=== PATIENT | female | born 1990 | race Caucasian/White ===

== ENCOUNTER 2016-09-07 00:34 | Emergency (ER) | payer SELFPAY ==
[~2016-09-07] VITALS: Ht 162.5 cm; Wt 63.5 kg
[~2016-09-07 00:34] MED LIST: AMOXICILLIN500 MG PO; ANAPROX DS550 MG PO; AUGMENTIN 875 M1 TAB PO; BACTRIM DS 8001 TA1 PO; BACTROBAN OINT22 GM PO; CLINDAMYCIN150 MG PO; FLEXERIL10 MG PO; IBU800 M1 PO; KEFLEX500 M1 PO; KEFLEX500 MG PO; MACROBID100 M1 PO; MOTRIN 800 MG E4 TAB PO; MOTRIN600 MG PO; NKHM; NKHM PO; NORCO 10-325 T1 EACH PO; PERCOCET 325 MG1 TA2; PERCOCET 325 MG1 TA2 PO; PREDNICOT20 MG PO; PRENATAL1 TA1; PRENATAL1 TA1 PO; PYRIDIUM200 MG PO; SEPTRA DS 800 M1 TAB PO; TYLENOL325 M1 PO; ULTRAM50 MG PO; ZOFRAN ODT4 MG PO; ZOFRAN ODT4 MG SL; ZYRTEC10 MG PO
[2016-09-07 00:54] LABS: BASO % 0.3 % (0.0-1.0); EOS % 0.3 % (1.0-4.0); HEMATOCRIT 40.5 % (37.0-47.0); HEMOGLOBIN 13.7 g/dl (12.0-16.0); IG # 0.1 10*3/uL (0.0-0.1); LYMPH # 1.2 10*3/uL (1.3-4.4); LYMPH % 10.1 % (27.0-41.0); MEAN CELL VOLUME 96.9 fl (81.0-99.0); MEAN CORPUSCULAR HGB 32.8 pg (27.0-31.0); MEAN CORPUSCULAR HGB CONC 33.8 g/dl (33.0-37.0); MEAN PLATELET VOLUME 9.1 fl (9.6-12.3); MONO # 0.6 10*3/uL (0.1-1.0); MONO % 4.8 % (3.0-9.0); NEUT % 84.1 % (47.0-73.0); PLATELET COUNT AUTOMATED 384 10*3/uL (130-400); RED BLOOD COUNT 4.18 10*6/uL (4.10-5.10); RED CELL DISTRI WIDTH 13.2 % (0-14.5); WHITE BLOOD COUNT 11.9 10*3/uL (4.8-10.8)
[2016-09-07 01:09] LABS: ALBUMIN 3.9 gm/dl (3.1-4.5); ALKALINE PHOSPHATASE 64 U/L (45-117); BILIRUBIN, TOTAL 0.2 mg/dl (0.2-1.0); BUN 9 mg/dl (7-24); CARBON DIOXIDE 24 mmol/L (21-32); CHLORIDE 106 mmol/L (98-107); EST GLOM FILT AFRICAN AMERICAN > 60 ml/min; GLUCOSE 102 mg/dL (65-99); POTASSIUM 3.7 mmol/L (3.5-5.1); SGOT/AST 18 IU/L (3-35); SGPT/ALT 29 U/L (12-78); SODIUM 139 mmol/L (136-145); TOTAL PROTEIN 7.5 gm/dL (6.4-8.2)
[2016-09-07 01:12] LABS: B-hCG (QUALITATIVE) NEGATIVE (NEGATIVE)
[2016-09-07 01:18] LABS: BILIRUBIN NEGATIVE (NEGATIVE); BLOOD 1+ (NEGATIVE); COLOR YELLOW (YELLOW); GLUCOSE NEGATIVE (NEGATIVE); KETONE NEGATIVE (NEGATIVE); LEUKO ESTERASE 2+ (NEGATIVE); NITRITE NEGATIVE (NEGATIVE); PROTEIN NEGATIVE (NEGATIVE); SPECIFIC GRAVITY 1.015 (1.005-1.030); UROBILINOGEN 0.2 E.U./dl (0.2-1.0)
[2016-09-07 01:23] LABS: CLARITY SL CLOUDY (CLEAR)
[2016-09-07 01:25] LABS: URINE REFLEX COMMENT YES (NO); WBC 21-30 wbc/hpf (0-5)
[2016-09-07 01:28] LABS: URINE AMPHETAMINES < 1000 (1000ng/ml); URINE BARBITURATES < 200 (200ng/ml); URINE COCAINE > 300 (300ng/ml)
[2016-09-07] MEDS ORDERED: BACTRIM DS 8001 TA1 PO (12:27)
== END 2016-09-07 11:47 | disposition home or self-care (01) ==
LOC: ED 00:34
PROVIDERS: Physician Assistant
DX: F19.929 Other psychoactive substance use, unspecified with intoxication, unspecified (principal); R45.851 Suicidal ideations

== ENCOUNTER 2017-04-29 18:01 | Emergency (ER) | payer SELFPAY ==
[~2017-04-29] VITALS: Wt 59.0 kg
[2017-04-29] MEDS ORDERED: SEPTDS PO (19:20)
[2017-04-29] MEDS ORDERED: CEPHALEXIN500 M1 PO (19:20)
== END 2017-04-29 19:47 | disposition home or self-care (01) ==
LOC: ED 18:01
DX: L02.412 Cutaneous abscess of left axilla (principal); F17.200 Nicotine dependence, unspecified, uncomplicated; F10.10 Alcohol abuse, uncomplicated

== ENCOUNTER 2017-12-19 14:56 | Inpatient (IN) | payer SELFPAY ==
[~2017-12-19] VITALS: Ht 160 cm; Wt 67.8 kg
--- NOTE | ~2017-12-19 | EKG ---
[place], [place] ELECTROCARDIOGRAM REPORT NAME: MOHINDER SIMENTAL UNIT #: [id number] ROOM: [facility] DOCTOR: AMI DRAFT REPORT BIRTHDATE: [birth year] [facility] Test Date: 2017-12-19 Test Time: 17:51:16 Pat Name: MOHINDER SIMENTAL Department: 5 Room: [facility] 1 Gender: F [employer]: : 1990 Requested By: DIGNA PEACOCK Order Number: [id number] Reading MD: Altaf Sheldon MD Measurements Intervals [place] Rate: 101 P: 24 [place]: 116 QRS: 33 QRSD: 90 T: 32 QT: 343 QTc: 445 Interpretive Statements Sinus tachycardia Electronically Signed On 12-19-2017 19:11:11 PDT by Altaf Sheldon MD CM:EKGRPT:ELECTROCARDIOGRAM REPORT [id number] 10 DIGNA PEACOCK EPIPHANY DRAFT REPORT DIGNA PEACOCK
[~2017-12-19 14:56] MED LIST changes: +CEPHALEXIN500 M1 PO; +SEPTDS PO
[2017-12-19 14:57] VITALS: BP 121/85
[2017-12-19 16:00] LABS: BASO # 0.1 10*3/uL (0.0-0.1); BASO % 0.4 % (0.0-1.0); EOS # 0.1 10*3/uL (0.0-0.4); EOS % 0.4 % (1.0-4.0); HEMATOCRIT 41.6 % (37.0-47.0); HEMOGLOBIN 13.7 g/dl (12.0-16.0); LYMPH # 2.5 10*3/uL (1.3-4.4); LYMPH % 18.3 % (27.0-41.0); MEAN CELL VOLUME 97.2 fl (81.0-99.0); MEAN CORPUSCULAR HGB CONC 32.9 g/dl (33.0-37.0); MEAN PLATELET VOLUME 9.3 fl (9.6-12.3); MONO # 1.1 10*3/uL (0.1-1.0); MONO % 8.1 % (3.0-9.0); NEUT # 10.1 10*3/uL (2.3-7.9); NEUT % 72.4 % (47.0-73.0); PLATELET COUNT AUTOMATED 509 10*3/uL (130-400); RED BLOOD COUNT 4.28 10*6/uL (4.10-5.10); RED CELL DISTRI WIDTH 13.4 % (0-14.5); WHITE BLOOD COUNT 13.9 10*3/uL (4.8-10.8)
[2017-12-19 16:10] LABS: ACT PARTIAL THROMBO TIME 23.5 SECONDS (20.8-31.5); INTERNATIONAL NORM RATIO 0.9 (2.0-3.5)
[2017-12-19 16:16] LABS: ALBUMIN 3.5 gm/dl (3.1-4.5); ALKALINE PHOSPHATASE 100 U/L (45-117); BUN 10 mg/dl (7-24); CHLORIDE 105 mmol/L (98-107); CREATININE 0.84 mg/dL (0.55-1.02); ETHYL ALCOHOL < 3.0 mg/dl (<3); POTASSIUM 3.6 mmol/L (3.5-5.1); SGOT/AST 82 IU/L (3-35); SGPT/ALT 260 U/L (12-78); SODIUM 139 mmol/L (136-145); TOTAL PROTEIN 8.3 gm/dL (6.4-8.2)
[2017-12-19 16:21] VITALS: BP 123/73
[2017-12-19 16:54] LABS: BILIRUBIN NEGATIVE (NEGATIVE); BLOOD NEGATIVE (NEGATIVE); CLARITY CLOUDY (CLEAR); COLOR YELLOW (YELLOW); GLUCOSE NEGATIVE (NEGATIVE); KETONE TRACE (NEGATIVE); LEUKO ESTERASE NEGATIVE (NEGATIVE); NITRITE NEGATIVE (NEGATIVE); PH 5.5 (5.0-9.0); SPECIFIC GRAVITY 1.015 (1.005-1.030)
[2017-12-19 17:00] LABS: BACTERIA 2+; MUCOUS 1+; RBC 0-2 rbc/hpf (0-2)
[2017-12-19 17:02] LABS: URINE AMPHETAMINES < 1000 (1000ng/ml); URINE BARBITURATES < 200 (200ng/ml); URINE BENZODIAZEPINES < 200 (200ng/ml); URINE CANNABINOIDS (THC) > 50 (50ng/ml); URINE COCAINE > 300 (300ng/ml); URINE METHADONE < 300 (300ng/ml); URINE OPIATES < 300 (300ng/ml)
[2017-12-19 17:05] LABS: URINE PHENCYCLIDINE < 25 (25ng/ml)
[2017-12-19 17:15] VITALS: BP 94/68
[2017-12-19 17:45] VITALS: BP 113/64
[2017-12-19 20:00] VITALS: BP 125/60
[2017-12-20] VITALS: BP 110/53
[2017-12-20 06:47] LABS: BASO % 0.3 % (0.0-1.0); EOS # 0.1 10*3/uL (0.0-0.4); EOS % 0.5 % (1.0-4.0); LYMPH # 2.6 10*3/uL (1.3-4.4); LYMPH % 19.9 % (27.0-41.0); MEAN CELL VOLUME 96.4 fl (81.0-99.0); MEAN CORPUSCULAR HGB 31.4 pg (27.0-31.0); MEAN CORPUSCULAR HGB CONC 32.6 g/dl (33.0-37.0); MEAN PLATELET VOLUME 9.4 fl (9.6-12.3); MONO # 1.1 10*3/uL (0.1-1.0); MONO % 8.3 % (3.0-9.0); NEUT # 9.3 10*3/uL (2.3-7.9); NEUT % 70.5 % (47.0-73.0); PLATELET COUNT AUTOMATED 389 10*3/uL (130-400); RED BLOOD COUNT 3.63 10*6/uL (4.10-5.10); RED CELL DISTRI WIDTH 13.4 % (0-14.5); WHITE BLOOD COUNT 13.2 10*3/uL (4.8-10.8)
[2017-12-20 06:51] LABS: HEMOGLOBIN 11.4 g/dl (12.0-16.0)
[2017-12-20 07:12] LABS: ALBUMIN 2.6 gm/dl (3.1-4.5); ALKALINE PHOSPHATASE 74 U/L (45-117); BUN 10 mg/dl (7-24); CHLORIDE 110 mmol/L (98-107); CHOLESTEROL 93 mg/dL (<200); CREATININE 0.63 mg/dL (0.55-1.02); FREE T4 1.15 ng/dl (0.76-1.46); HDL CHOLESTEROL 26 mg/dl (40-60); LDL CHOLESTEROL 54 mg/dL (9-159); PHOSPHOROUS 2.9 mg/dL (2.5-4.9); POTASSIUM 3.7 mmol/L (3.5-5.1); SGOT/AST 61 IU/L (3-35); SGPT/ALT 186 U/L (12-78); SODIUM 142 mmol/L (136-145); TOTAL PROTEIN 6.4 gm/dL (6.4-8.2); TRIGLYCERIDES 66 mg/dl (<150); VLDL CHOLESTEROL 13 mg/dL (6-40)
[2017-12-20 07:17] LABS: THYROID STIM HORMONE (HS) 0.235 uIU/ml (0.358-4.75)
[2017-12-20 08:00] VITALS: BP 98/60
[2017-12-20 08:10] LABS: VITAMIN D, 25-HYDROXY 33.4 ng/mL (30-100)
[2017-12-20 12:00] VITALS: BP 119/59
[2017-12-20 16:00] VITALS: BP 112/63
[2017-12-20 20:00] VITALS: BP 124/69
[2017-12-21] VITALS: BP 124/69
[2017-12-21 06:20] LABS: BASO # 0.1 10*3/uL (0.0-0.1); BASO % 0.3 % (0.0-1.0); EOS # 0.1 10*3/uL (0.0-0.4); EOS % 0.3 % (1.0-4.0); HEMATOCRIT 36.6 % (37.0-47.0); HEMOGLOBIN 12.1 g/dl (12.0-16.0); LYMPH # 2.9 10*3/uL (1.3-4.4); LYMPH % 19.1 % (27.0-41.0); MEAN CELL VOLUME 95.6 fl (81.0-99.0); MEAN CORPUSCULAR HGB 31.6 pg (27.0-31.0); MEAN CORPUSCULAR HGB CONC 33.1 g/dl (33.0-37.0); MONO # 1.2 10*3/uL (0.1-1.0); MONO % 7.6 % (3.0-9.0); NEUT # 10.9 10*3/uL (2.3-7.9); NEUT % 72.2 % (47.0-73.0); PLATELET COUNT AUTOMATED 375 10*3/uL (130-400); RED BLOOD COUNT 3.83 10*6/uL (4.10-5.10); RED CELL DISTRI WIDTH 13.2 % (0-14.5); WHITE BLOOD COUNT 15.2 10*3/uL (4.8-10.8)
[2017-12-21 06:47] LABS: BUN 7 mg/dl (7-24); CHLORIDE 106 mmol/L (98-107); CREATININE 0.62 mg/dL (0.55-1.02); POTASSIUM 3.6 mmol/L (3.5-5.1); SODIUM 139 mmol/L (136-145)
[2017-12-21 08:00] VITALS: BP 108/66
[2017-12-21 12:00] VITALS: BP 118/72
[2017-12-21 16:00] VITALS: BP 104/70
[2017-12-21 20:00] VITALS: BP 119/63
[2017-12-22] VITALS: BP 119/70
[2017-12-22 08:00] VITALS: BP 119/68
[2017-12-22 12:00] VITALS: BP 109/66
[2017-12-22 16:00] VITALS: BP 114/63
[2017-12-22 20:00] VITALS: BP 128/73
[2017-12-23] VITALS: BP 84/47
[2017-12-23 01:30] VITALS: BP 104/68
[2017-12-23 06:27] LABS: BUN 12 mg/dl (7-24); CREATININE 0.58 mg/dL (0.55-1.02)
[2017-12-23 06:41] LABS: BASO # 0.1 10*3/uL (0.0-0.1); BASO % 0.8 % (0.0-1.0); EOS # 0.2 10*3/uL (0.0-0.4); EOS % 1.8 % (1.0-4.0); HEMATOCRIT 37.7 % (37.0-47.0); HEMOGLOBIN 12.8 g/dl (12.0-16.0); LYMPH # 2.8 10*3/uL (1.3-4.4); MEAN CELL VOLUME 94.3 fl (81.0-99.0); MEAN PLATELET VOLUME 10.1 fl (9.6-12.3); MONO # 0.7 10*3/uL (0.1-1.0); NEUT # 6.1 10*3/uL (2.3-7.9); NEUT % 60.9 % (47.0-73.0); NUCLEATED RED BLOOD CELL 0.1 10*3/uL (0.0-0.0); NUCLEATED RED BLOOD CELL 0.7 % (0.0-0.0); PLATELET COUNT AUTOMATED 395 10*3/uL (130-400); RED CELL DISTRI WIDTH 13.2 % (0-14.5)
[2017-12-23 08:00] VITALS: BP 119/75
[2017-12-23 08:10] LABS: HEPATITIS B SURFACE AG Negative (Negative)
[2017-12-23 08:27] LABS: HEPATITIS C VIRUS ANTIBODY >11.0 s/co (0.0-0.9)
[2017-12-23 12:00] VITALS: BP 101/61
[2017-12-23 16:00] VITALS: BP 102/55
[2017-12-23] MEDS ORDERED: SEPTDS PO (16:55)
[2017-12-24 08:08] LABS: HIV 1+2 AB + HIV1 P24 AG Non Reactive (Non Reactive)
== END 2017-12-23 18:32 | disposition home or self-care (01) | DRG 872 ==
LOC: ED 14:56 → EDHOLD 16:45 → 5E 16:45
PROVIDERS: Internal Medicine; Internal Medicine Infectious Disease; Physician Assistant
PROC: 0H9EXZZ Drainage of Left Lower Arm Skin, External Approach (ICD-10-PCS; principal; 2017-12-21)
DX: A41.9 Sepsis, unspecified organism (principal); E83.41 Hypermagnesemia; L03.114 Cellulitis of left upper limb; N76.4 Abscess of vulva; L02.31 Cutaneous abscess of buttock; L02.414 Cutaneous abscess of left upper limb; N39.0 Urinary tract infection, site not specified; B96.20 Unspecified Escherichia coli [E. coli] as the cause of diseases classified elsewhere; F14.10 Cocaine abuse, uncomplicated; F19.10 Other psychoactive substance abuse, uncomplicated; F17.200 Nicotine dependence, unspecified, uncomplicated; R74.0 Nonspecific elevation of levels of transaminase and lactic acid dehydrogenase [LDH]; B95.62 Methicillin resistant Staphylococcus aureus infection as the cause of diseases classified elsewhere; D47.3 Essential (hemorrhagic) thrombocythemia; R70.0 Elevated erythrocyte sedimentation rate; Z98.891 History of uterine scar from previous surgery; Z82.49 Family history of ischemic heart disease and other diseases of the circulatory system; Z82.5 Family history of asthma and other chronic lower respiratory diseases; Z86.14 Personal history of Methicillin resistant Staphylococcus aureus infection; Z90.49 Acquired absence of other specified parts of digestive tract; Z71.6 Tobacco abuse counseling